=== PATIENT | male | born 1935 | race Caucasian/White ===

== ENCOUNTER 2016-06-07 21:47 | Inpatient (IN) | payer OTHER ==
[~2016-06-07] VITALS: Ht 172.7 cm; Wt 84.0 kg
[~2016-06-07 21:47] MED LIST: ADVAIR 250/501 DISK IH; AMITRIPTYLINE H25 MG PO; AMLODIPINE BESY10 MG PO; AMLODIPINE BESYL5 MG PO; AZITHROMYCIN500 M1 PO; Antivert PO; BENTYL20 MG PO; BUSPIRONE HCL15 MG PO; CARAFATE1 GM PO; CLONIDINE HCL0.1 MG PO; COLACE100 MG PO; COZAAR50 MG PO; DILAUDID2 MG PO; DURAGESIC25 MCG TD; Desyrel PO; Diflucan PO; Duragesic TD; ENDOCET 10-3251 EACH PO; ENDOCET 5-3251 EACH PO; Elavil PO; FENTANYL1 EAC5 TD; FENTANYL1 EACH TD; FLOMAX0.4 MG PO; FLUCONAZOL; GABAPENTIN300 MG PO; HALCION0.125 MG PO; HALCION0.25 MG PO; LISINOPRIL10 MG PO; LISINOPRIL20 MG PO; LORTAB 5-325 M1 EACH PO; LOSARTAN POTASS50 MG PO; MELATONIN10 M1 PO; METOPROLOL TART25 MG; METOPROLOL TART25 MG PO; METOPROLOL TART50 MG PO; MORPHINE SULFAT30 M5 PO; MUCINEX DM ER1 EACH PO; NITROSTAT,NITR0.4 M1 SL; NITROSTAT0.4 MG SL; NORVASC5 MG PO; Norvasc PO; PANTOPRAZOLE SO40 MG PO; PERCOCET 10/1 TABLET PO; PERCOCET 5/31 TABLET PO; PREDNISONE10 MG PO; PREDNISONE20 MG PO; PROAIR HFA8.5 GM IH; PROMETHAZINE HC25 M1 PO; PROTONIX40 MG PO; QUETIAPINE FUMA25 MG PO; QUETIAPINE FUMA50 MG PO; REQUIP0.5 MG PO; REQUIP1 MG PO; SERTRALINE HCL50 MG PO; SIMVASTATIN20 MG PO; Sertraline HCl PO; TRAZODONE HCL50 MG PO; ZANTAC150 MG PO; ZITHROMAX Z-PA250 MG PO; ZITHROMAX500 MG PO; ZOCOR20 MG PO; ZOFRAN ODT4 MG PO; ZOFRAN4 MG PO; ZOLOFT100 MG PO; ZOLOFT50 M1 PO; Zocor PO; Zofran PO; Zoloft PO
[2016-06-07 23:17] LABS: HEMATOCRIT 37.9 % (38.0-50.0); MCH 28.2 PG (29.0-34.0); MCHC 34.3 G/DL (30.0-36.0); MCV 82.2 FL (86-99); MEAN PLAT.VOLUME 10.3 uM^3 (9.0-12.4); PLATELET COUNT 284 K/uL (156-360); RBC DIS.WIDTH-CV 13.2 % (11.8-14.6); RBC DIS.WIDTH-SD 38.8 % (39-53); RED BLOOD COUNT 4.61 M/uL (4.00-5.50)
[2016-06-07 23:29] LABS: CHLORIDE 106 mEq/L (99-109); POTASSIUM 4.1 mEq/L (3.7-5.4); SODIUM 138 mEq/L (136-147)
[2016-06-07 23:30] LABS: GLUCOSE 116 mg/dL (70-99)
[2016-06-07 23:32] LABS: ANION GAP 10 MEQ/L (2-14)
[2016-06-07 23:34] LABS: GFR ESTIMATE (CALCULATED) 48 mL/min/
[2016-06-07 23:35] LABS: UREA NITROGEN (BUN) 18 mg/dL (9-23)
[2016-06-08 01:33] LABS: LIPASE 65 U/L (1.0-51.0)
[2016-06-08 04:10] VITALS: BP 178/72
[2016-06-08 06:46] LABS: ANION GAP 7 MEQ/L (2-14); CHLORIDE 106 MEQ/L (99-109); GFR ESTIMATE (CALCULATED) 52 mL/min/; GLUCOSE 97 mg/dL (70-99); SAMPLE HEMOLYSIS CHECK 0; SAMPLE ICTERIC CHECK 0; SAMPLE LIPEMIA CHECK 0; SODIUM 137 MEQ/L (136-147); UREA NITROGEN (BUN) 18 mg/dL (9-23)
[2016-06-08 06:49] LABS: HEMATOCRIT 30.9 % (38.0-50.0); MCH 27.6 PG (29.0-34.0); MCV 83.7 FL (86-99); RBC DIS.WIDTH-CV 13.4 % (11.8-14.6); RBC DIS.WIDTH-SD 40.9 % (39-53); RED BLOOD COUNT 3.69 M/uL (4.00-5.50)
[2016-06-08 06:51] LABS: WHITE BLOOD COUNT 8.1 K/uL (4.1-10.2)
[2016-06-08 07:45] LABS: MEAN PLAT.VOLUME 10.4 uM^3 (9.0-12.4)
[2016-06-08 07:46] LABS: PLATELET COUNT 188 K/uL (156-360)
[2016-06-08 12:00] VITALS: BP 154/68
[2016-06-08 14:00] VITALS: BP 177/74
[2016-06-09] VITALS (7 sets, daily range): BP systolic 112–165; BP diastolic 56–92
[2016-06-09 09:17] LABS: ADD MIUA? NO; BILIRUBIN NEGATIVE; BLOOD NEGATIVE; COLOR YELLOW ((YELLOW)); GLUCOSE (STRIP) NEGATIVE; KETONES TRACE; LEUKOCYTES NEGATIVE; NITRITE NEGATIVE; PROTEIN (STRIP) NEGATIVE; SPECIFIC GRAVITY 1.008 (1.000-1.030); UROBILINOGEN 0.2 MG/DL (0.2-1.0)
[2016-06-09 09:34] LABS: UCUL ADDED? NO
[2016-06-10 04:24] VITALS: BP 169/77
[2016-06-10 05:30] VITALS: BP 139/69
[2016-06-10 08:30] VITALS: BP 156/72
[2016-06-10 12:43] VITALS: BP 147/70
[2016-06-10] MEDS ORDERED: REGLAN5 MG PO (13:01)
[2016-06-10] MEDS ORDERED: DULCOLAX10 MG PR (13:30)
[2016-06-10 16:55] VITALS: BP 141/68
[2016-06-10 21:24] VITALS: BP 182/80
[2016-06-11 06:58] LABS: EOSINOPHIL (%) 5.6 % (0-5); EOSINOPHIL COUNT 0.4 K/uL (0-0.3); HEMATOCRIT 34.3 % (38.0-50.0); IMMATURE GRANULOCYTE (%) 0.3 % (0.0-0.7); LYMPHOCYTE COUNT 1.6 K/uL (1.0-2.8); MCH 27.8 PG (29.0-34.0); MCHC 33.2 G/DL (30.0-36.0); MCV 83.7 FL (86-99); MEAN PLAT.VOLUME 10.4 uM^3 (9.0-12.4); MONOCYTE (%) 9.6 % (3-12); MONOCYTE COUNT 0.7 K/uL (0-0.8); PLATELET COUNT 193 K/uL (156-360); RBC DIS.WIDTH-CV 13.6 % (11.8-14.6); RBC DIS.WIDTH-SD 41.3 % (39-53); WHITE BLOOD COUNT 6.7 K/uL (4.1-10.2)
[2016-06-11 08:00] VITALS: BP 172/81
[2016-06-11 08:21] LABS: ALKALINE PHOSPHATASE 48 IU/L (3-129); ANION GAP 7 MEQ/L (2-14); CHLORIDE 106 MEQ/L (99-109); GFR ESTIMATE (CALCULATED) 48 mL/min/; GLUCOSE 102 mg/dL (70-99); MAGNESIUM 2.2 mg/dl (1.3-2.7); POTASSIUM 3.8 MEQ/L (3.7-5.4); SAMPLE HEMOLYSIS CHECK 0; SAMPLE ICTERIC CHECK 0; SAMPLE LIPEMIA CHECK 0; SODIUM 139 MEQ/L (136-147); UREA NITROGEN (BUN) 13 mg/dL (9-23)
[2016-06-11 08:31] LABS: TOTAL BILIRUBIN 0.5 MG/DL (0.0-1.0)
[2016-06-11 12:47] VITALS: BP 168/75
[2016-06-11 20:42] VITALS: BP 182/75
[2016-06-12] VITALS: BP 150/67
[2016-06-12 04:22] VITALS: BP 133/63
[2016-06-12 08:33] VITALS: BP 146/71
[2016-06-12 11:45] VITALS: BP 139/65
[2016-06-12 16:26] VITALS: BP 157/69
[2016-06-12 20:20] VITALS: BP 168/80
[2016-06-13] VITALS (7 sets, daily range): BP systolic 132–187; BP diastolic 63–87
[2016-06-13 07:11] LABS: HEMATOCRIT 31.4 % (38.0-50.0); MCHC 33.8 G/DL (30.0-36.0); MCV 83.1 FL (86-99); MEAN PLAT.VOLUME 10.6 uM^3 (9.0-12.4); PLATELET COUNT 188 K/uL (156-360); RBC DIS.WIDTH-CV 13.6 % (11.8-14.6); RBC DIS.WIDTH-SD 41.1 % (39-53); RED BLOOD COUNT 3.78 M/uL (4.00-5.50); WHITE BLOOD COUNT 6.4 K/uL (4.1-10.2)
[2016-06-13 07:38] LABS: ANION GAP 7 MEQ/L (2-14); CHLORIDE 107 MEQ/L (99-109); GFR ESTIMATE (CALCULATED) 56 mL/min/; GLUCOSE 103 mg/dL (70-99); MAGNESIUM 2.1 mg/dl (1.3-2.7); POTASSIUM 3.9 MEQ/L (3.7-5.4); SAMPLE HEMOLYSIS CHECK 0; SAMPLE ICTERIC CHECK 0; SAMPLE LIPEMIA CHECK 0; SODIUM 140 MEQ/L (136-147); UREA NITROGEN (BUN) 12 mg/dL (9-23)
[2016-06-14 04:14] VITALS: BP 191/81
[2016-06-14 07:35] VITALS: BP 156/92
[2016-06-14 12:26] VITALS: BP 120/59
[2016-06-14] MEDS ORDERED: DECADRON1 MG PO (14:22)
[2016-06-14] MEDS ORDERED: ERYTHROMYCIN250 M1 PO (14:22)
== END 2016-06-14 16:02 | disposition home health service (06) | DRG 392 ==
LOC: EME 21:47 → EDOF 06-08 01:56 → 5WEST 06-08 01:56
PROVIDERS: Hospitalist; Internal Medicine
DX: K31.84 Gastroparesis (principal); R13.10 Dysphagia, unspecified; E86.0 Dehydration; E27.40 Unspecified adrenocortical insufficiency; N17.9 Acute kidney failure, unspecified; K21.9 Gastro-esophageal reflux disease without esophagitis; D72.829 Elevated white blood cell count, unspecified; M75.101 Unspecified rotator cuff tear or rupture of right shoulder, not specified as traumatic; R41.0 Disorientation, unspecified; G24.01 Drug induced subacute dyskinesia; T45.0X5A Adverse effect of antiallergic and antiemetic drugs, initial encounter; I13.10 Hypertensive heart and chronic kidney disease without heart failure, with stage 1 through stage 4 chronic kidney disease, or unspecified chronic kidney disease; N18.3 Chronic kidney disease, stage 3 (moderate); K25.9 Gastric ulcer, unspecified as acute or chronic, without hemorrhage or perforation; G30.9 Alzheimer's disease, unspecified; F02.80 Dementia in other diseases classified elsewhere, unspecified severity, without behavioral disturbance, psychotic disturbance, mood disturbance, and anxiety; J44.9 Chronic obstructive pulmonary disease, unspecified; I25.10 Atherosclerotic heart disease of native coronary artery without angina pectoris; I25.2 Old myocardial infarction; Z98.61 Coronary angioplasty status; E78.5 Hyperlipidemia, unspecified; R29.6 Repeated falls; G89.4 Chronic pain syndrome; Z88.0 Allergy status to penicillin; Z88.1 Allergy status to other antibiotic agents; Z88.5 Allergy status to narcotic agent; Z88.6 Allergy status to analgesic agent; Z88.8 Allergy status to other drugs, medicaments and biological substances; Z91.041 Radiographic dye allergy status
CPT/HCPCS: 71020; 73030; 74000; 80048; 80053; 80400; 81003; 82024 90; 82533 91; 83690; 83735; 85025; 85027; 86850; 86900; 86901; 93005; 93971; 94799; 97530 GP; 99281; 99285; C9113; G0378; G8978 GP CJ; G8979 GP CI; G8987 GO CJ; G8988 GO CH; J1200; J2270; J2405; J2765; J7040; J8540

== ENCOUNTER 2016-08-19 09:45 | Inpatient (IN) | payer OTHER ==
[~2016-08-19] VITALS: Ht 182.9 cm; Wt 84.9 kg
[~2016-08-19 09:45] MED LIST changes: +DECADRON1 MG PO; +DULCOLAX10 MG PR; +ERYTHROMYCIN250 M1 PO; +REGLAN5 MG PO
[2016-08-19 10:42] LABS: BASOPHIL COUNT 0.1 K/uL (0-0.1); EOSINOPHIL (%) 1.8 % (0-5); EOSINOPHIL COUNT 0.2 K/uL (0-0.3); HEMATOCRIT 34.9 % (38.0-50.0); IMMATURE GRANULOCYTE (%) 0.5 % (0.0-0.7); IMMATURE GRANULOCYTE COUNT 0.1 K/uL; INSTRUMENT ABS NEUTROPHIL CT 11.7 K/uL; LYMPHOCYTE COUNT 0.5 K/uL (1.0-2.8); MCH 28.2 PG (29.0-34.0); MCHC 32.4 G/DL (30.0-36.0); MONOCYTE (%) 5.7 % (3-12); MONOCYTE COUNT 0.8 K/uL (0-0.8); NEUTROPHIL (%) 87.8 % (45-76); NEUTROPHIL COUNT 11.7 K/uL (1.8-6.4); PLATELET COUNT 195 K/uL (156-360); RBC DIS.WIDTH-CV 14.1 % (11.8-14.6); RBC DIS.WIDTH-SD 45.3 % (39-53); RED BLOOD COUNT 4.01 M/uL (4.00-5.50); WHITE BLOOD COUNT 13.3 K/uL (4.1-10.2)
[2016-08-19 11:02] LABS: CHLORIDE 110 mEq/L (99-109); POTASSIUM 4.3 mEq/L (3.7-5.4); SODIUM 141 mEq/L (136-147)
[2016-08-19 11:04] LABS: GLUCOSE 173 mg/dL (70-99)
[2016-08-19 11:05] LABS: ANION GAP 8 MEQ/L (2-14)
[2016-08-19 11:06] LABS: TOTAL BILIRUBIN 0.6 mg/dL (0.0-1.0)
[2016-08-19 11:07] LABS: ADD MIUA? NO; BILIRUBIN NEGATIVE; BLOOD NEGATIVE; COLOR YELLOW ((YELLOW)); GLUCOSE (STRIP) NEGATIVE; KETONES NEGATIVE; LEUKOCYTES NEGATIVE; NITRITE NEGATIVE; PROTEIN (STRIP) NEGATIVE; SPECIFIC GRAVITY 1.017 (1.000-1.030); UCUL ADDED? NO; UROBILINOGEN 0.2 MG/DL (0.2-1.0)
[2016-08-19 11:08] LABS: ALKALINE PHOSPHATASE 101 IU/L (3-129); GFR ESTIMATE (CALCULATED) 48 mL/min/
[2016-08-19 11:09] LABS: UREA NITROGEN (BUN) 18 mg/dL (9-23)
[2016-08-19 12:45] LABS: LIPASE 23 U/L (1.0-51.0)
[2016-08-19 15:26] VITALS: BP 122/65
[2016-08-19] MEDS ORDERED: DULCOLAX10 MG PR (16:48)
[2016-08-19] MEDS ORDERED: ARICEPT10 MG PO (16:50)
[2016-08-19 16:52] LABS: POINT-OF-CARE METER ID UU14188625
[2016-08-19 19:45] VITALS: BP 171/71
[2016-08-19 23:29] VITALS: BP 168/88
[2016-08-20 01:00] LABS: INFLUENZA A VIRAL ANTIGEN NEGATIVE; INFLUENZA B VIRAL ANTIGEN NEGATIVE
[2016-08-20 04:45] VITALS: BP 169/77
[2016-08-20 07:24] LABS: HEMATOCRIT 27.5 % (38.0-50.0); MCH 27.8 PG (29.0-34.0); MEAN PLAT.VOLUME 10.2 uM^3 (9.0-12.4); PLATELET COUNT 151 K/uL (156-360); RBC DIS.WIDTH-CV 14.1 % (11.8-14.6); RBC DIS.WIDTH-SD 45.6 % (39-53); WHITE BLOOD COUNT 10.4 K/uL (4.1-10.2)
[2016-08-20 07:42] LABS: ANION GAP 7 MEQ/L (2-14); CHLORIDE 114 MEQ/L (99-109); GLUCOSE 187 mg/dL (70-99); POTASSIUM 4.2 MEQ/L (3.7-5.4); SAMPLE HEMOLYSIS CHECK 0; SAMPLE ICTERIC CHECK 0; SAMPLE LIPEMIA CHECK 0; SODIUM 141 MEQ/L (136-147); UREA NITROGEN (BUN) 17 mg/dL (9-23)
[2016-08-20 07:49] LABS: RED BLOOD COUNT 3.16 M/uL (4.00-5.50)
[2016-08-20 08:00] VITALS: BP 151/68
[2016-08-20 08:04] LABS: GFR ESTIMATE (CALCULATED) > 59 mL/min/
[2016-08-20 08:26] LABS: INTERNAL CONTROL VALID? YES
[2016-08-20 11:15] VITALS: BP 124/54
[2016-08-20 14:36] LABS: HEMATOCRIT 25.8 % (38.0-50.0); MCV 87.2 FL (86-99)
[2016-08-20 15:19] VITALS: BP 149/65
[2016-08-20 22:20] LABS: POINT-OF-CARE METER ID UU14174225
[2016-08-21 07:50] LABS: HEMATOCRIT 25.8 % (38.0-50.0); MCH 27.9 PG (29.0-34.0); MCHC 32.2 G/DL (30.0-36.0); MCV 86.9 FL (86-99); MEAN PLAT.VOLUME 10.3 uM^3 (9.0-12.4); PLATELET COUNT 139 K/uL (156-360); RBC DIS.WIDTH-CV 14.4 % (11.8-14.6); RBC DIS.WIDTH-SD 45.5 % (39-53); RED BLOOD COUNT 2.97 M/uL (4.00-5.50); WHITE BLOOD COUNT 8.5 K/uL (4.1-10.2)
[2016-08-21 08:00] VITALS: BP 143/68
[2016-08-21 12:00] VITALS: BP 138/70
[2016-08-21 15:18] VITALS: BP 136/72
[2016-08-21 20:27] VITALS: BP 126/64
[2016-08-21 21:48] LABS: POINT-OF-CARE METER ID UU14188625
[2016-08-22 00:13] VITALS: BP 165/71
[2016-08-22 06:02] LABS: POINT-OF-CARE METER ID UU14188625
[2016-08-22 07:48] VITALS: BP 151/66
[2016-08-22 07:53] LABS: POINT-OF-CARE METER ID UU14188625
[2016-08-22 09:37] LABS: Estimated Average Glucose 143 mg/dL (70-123); HEMOGLOBIN A1c (GLYCOHEMOGLOB) 6.6 % HGB (Below 5.7)
[2016-08-22 09:53] LABS: HEMATOCRIT 25.4 % (38.0-50.0); MCH 27.9 PG (29.0-34.0); MCHC 32.7 G/DL (30.0-36.0); MCV 85.5 FL (86-99); MEAN PLAT.VOLUME 10.4 uM^3 (9.0-12.4); PLATELET COUNT 179 K/uL (156-360); RBC DIS.WIDTH-SD 43.7 % (39-53); RED BLOOD COUNT 2.97 M/uL (4.00-5.50); WHITE BLOOD COUNT 8.4 K/uL (4.1-10.2)
[2016-08-22 10:01] LABS: ANION GAP 8 MEQ/L (2-14); CHLORIDE 108 MEQ/L (99-109); GFR ESTIMATE (CALCULATED) 56 mL/min/; GLUCOSE 206 mg/dL (70-99); SAMPLE HEMOLYSIS CHECK 0; SAMPLE ICTERIC CHECK 0; SAMPLE LIPEMIA CHECK 0; SODIUM 137 MEQ/L (136-147)
[2016-08-22 10:05] LABS: UREA NITROGEN (BUN) 28 mg/dL (9-23)
[2016-08-22 15:53] VITALS: BP 165/69
[2016-08-22 16:39] LABS: POINT-OF-CARE METER ID UU14188625
[2016-08-22 20:03] VITALS: BP 154/68
[2016-08-22 22:08] LABS: POINT-OF-CARE METER ID UU14188625
[2016-08-22 23:43] VITALS: BP 154/68
[2016-08-23 08:13] VITALS: BP 143/66
[2016-08-23 11:02] VITALS: BP 144/62
[2016-08-23] MEDS ORDERED: ZITHROMAX500 MG PO (11:13)
[2016-08-23] MEDS ORDERED: CEFDINIR300 MG PO (11:13)
[2016-08-23] MEDS ORDERED: PREDNISONE20 MG PO (11:50)
[2016-08-23] MEDS ORDERED: ZOFRAN ODT4 MG PO (18:24)
== END 2016-08-23 12:52 | disposition home or self-care (01) | DRG 871 ==
LOC: EME → EDBD 09:45 → EDOF 12:51 → 5SOUTH 12:51 → EDOF 13:13 → 5SOUTH 14:28
PROVIDERS: Emergency Medicine; Hospitalist; Internal Medicine; Internal Medicine Infectious Disease; Nurse Practitioner Adult Health
DX: A41.9 Sepsis, unspecified organism (principal); J18.9 Pneumonia, unspecified organism; N17.9 Acute kidney failure, unspecified; J44.1 Chronic obstructive pulmonary disease with (acute) exacerbation; E86.0 Dehydration; K31.84 Gastroparesis; N18.3 Chronic kidney disease, stage 3 (moderate); G30.9 Alzheimer's disease, unspecified; F03.90 Unspecified dementia, unspecified severity, without behavioral disturbance, psychotic disturbance, mood disturbance, and anxiety; I25.10 Atherosclerotic heart disease of native coronary artery without angina pectoris; Z91.81 History of falling; Z90.49 Acquired absence of other specified parts of digestive tract; I12.9 Hypertensive chronic kidney disease with stage 1 through stage 4 chronic kidney disease, or unspecified chronic kidney disease; Y95 Nosocomial condition
CPT/HCPCS: 70450; 71010; 80048; 80053; 81003; 82948; 83036; 83605; 83690; 85014; 85018; 85025; 85027; 86609 90; 87040; 87449; 87502; 92610 GN; 93005; 94640; 94640 76; 94799; 97530 GO; 99202; 99281; 99285; J0456; J0692; J0696; J1170; J1644; J1815; J2405; J2920; J3370; J7030; J7050; J7120

== ENCOUNTER 2016-08-23 15:56 | Emergency (ER) | payer OTHER ==
[~2016-08-23] VITALS: Ht 172.7 cm; Wt 93.7 kg
[~2016-08-23 15:56] MED LIST changes: +ARICEPT10 MG PO; +CEFDINIR300 MG PO
[2016-08-23 17:05] LABS: HEMATOCRIT 27.5 % (38.0-50.0); MCH 28.1 PG (29.0-34.0); MCHC 33.8 G/DL (30.0-36.0); MCV 83.1 FL (86-99); MEAN PLAT.VOLUME 10.3 uM^3 (9.0-12.4); PLATELET COUNT 196 K/uL (156-360); RBC DIS.WIDTH-CV 13.6 % (11.8-14.6); RBC DIS.WIDTH-SD 41.1 % (39-53); RED BLOOD COUNT 3.31 M/uL (4.00-5.50); WHITE BLOOD COUNT 8.5 K/uL (4.1-10.2)
[2016-08-23 17:14] LABS: CHLORIDE 105 mEq/L (99-109); POTASSIUM 3.9 mEq/L (3.7-5.4); SODIUM 136 mEq/L (136-147)
[2016-08-23 17:16] LABS: GLUCOSE 157 mg/dL (70-99)
[2016-08-23 17:17] LABS: ANION GAP 8 MEQ/L (2-14)
[2016-08-23 17:18] LABS: TOTAL BILIRUBIN 0.2 mg/dL (0.0-1.0)
[2016-08-23 17:20] LABS: GFR ESTIMATE (CALCULATED) 56 mL/min/
[2016-08-23 17:21] LABS: UREA NITROGEN (BUN) 25 mg/dL (9-23)
[2016-08-23 17:23] LABS: LIPASE 90 U/L (1.0-51.0)
[2016-08-23 17:24] LABS: ALKALINE PHOSPHATASE 51 IU/L (3-129)
[2016-08-23] MEDS ORDERED: ZOFRAN ODT4 MG PO (18:24)
[2016-08-23 19:18] VITALS: BP 164/73
== END 2016-08-23 19:19 | disposition home or self-care (01) ==
LOC: EME 15:56
PROVIDERS: Emergency Medicine
DX: R11.10 Vomiting, unspecified (principal); J45.909 Unspecified asthma, uncomplicated; J44.9 Chronic obstructive pulmonary disease, unspecified; E78.5 Hyperlipidemia, unspecified; I10 Essential (primary) hypertension; K21.9 Gastro-esophageal reflux disease without esophagitis; Z87.891 Personal history of nicotine dependence
CPT/HCPCS: 80053; 83690; 85027; 99281; 99284; J2405

== ENCOUNTER 2016-08-24 14:00 | Emergency (ER) | payer OTHER ==
[~2016-08-24] VITALS: Ht 172.7 cm; Wt 80.9 kg
[2016-08-24 15:04] LABS: HEMATOCRIT 31.4 % (38.0-50.0); MCH 27.7 PG (29.0-34.0); MCHC 33.1 G/DL (30.0-36.0); MCV 83.5 FL (86-99); NRBC (%) 0.2 /100 WBC (0-0); RBC DIS.WIDTH-CV 13.6 % (11.8-14.6); RBC DIS.WIDTH-SD 41.4 % (39-53); RED BLOOD COUNT 3.76 M/uL (4.00-5.50)
[2016-08-24 15:05] LABS: PLATELET COUNT 259 K/uL (156-360); WHITE BLOOD COUNT 13.8 K/uL (4.1-10.2)
[2016-08-24 15:06] LABS: ADD MIUA? NO; BILIRUBIN NEGATIVE; BLOOD NEGATIVE; COLOR STRAW ((YELLOW)); GLUCOSE (STRIP) NEGATIVE; KETONES NEGATIVE; LEUKOCYTES NEGATIVE; NITRITE NEGATIVE; PROTEIN (STRIP) NEGATIVE; SPECIFIC GRAVITY 1.013 (1.000-1.030); UCUL ADDED? NO; UROBILINOGEN 0.2 MG/DL (0.2-1.0)
[2016-08-24 15:07] LABS: INTER. NORMALIZED RATIO 1.1; PROTHROMBIN TIME 10.7 (9.2-11.2); PTT 21.5 (25-32)
[2016-08-24 15:09] LABS: CHLORIDE 104 mEq/L (99-109); POTASSIUM 3.5 mEq/L (3.7-5.4); SODIUM 138 mEq/L (136-147)
[2016-08-24 15:13] LABS: ANION GAP 7 MEQ/L (2-14)
[2016-08-24 15:15] LABS: ALKALINE PHOSPHATASE 50 IU/L (3-129); GFR ESTIMATE (CALCULATED) 56 mL/min/
[2016-08-24 15:16] LABS: UREA NITROGEN (BUN) 20 mg/dL (9-23)
[2016-08-24 15:18] LABS: TROP-I INTERPRETATION NEGATIVE; TROPONIN-I 0.02 ng/mL (0.0-0.30)
[2016-08-24 15:20] LABS: GLUCOSE 91 mg/dL (70-99); TOTAL BILIRUBIN 0.4 mg/dL (0.0-1.0)
[2016-08-24 18:33] VITALS: BP 179/89
== END 2016-08-24 18:34 | disposition home or self-care (01) ==
LOC: EME 14:00
PROVIDERS: Emergency Medicine
DX: R11.10 Vomiting, unspecified (principal); F03.90 Unspecified dementia, unspecified severity, without behavioral disturbance, psychotic disturbance, mood disturbance, and anxiety; E78.5 Hyperlipidemia, unspecified; I10 Essential (primary) hypertension; Z88.1 Allergy status to other antibiotic agents; Z88.6 Allergy status to analgesic agent; Z91.041 Radiographic dye allergy status; Z87.891 Personal history of nicotine dependence
CPT/HCPCS: 71275; 80053; 81003; 84484; 85027; 85610; 85730; 93005; 99281; 99285; J2405; J7040

== ENCOUNTER 2016-09-25 13:04 | Emergency (ER) | payer OTHER ==
[~2016-09-25] VITALS: Ht 172.7 cm; Wt 85.0 kg
[2016-09-25 14:25] LABS: HEMATOCRIT 35.8 % (38.0-50.0); MCH 28.5 PG (29.0-34.0); MCHC 32.7 G/DL (30.0-36.0); MCV 87.3 FL (86-99); PLATELET COUNT 208 K/uL (156-360); RBC DIS.WIDTH-CV 14.6 % (11.8-14.6); RBC DIS.WIDTH-SD 46.6 % (39-53); WHITE BLOOD COUNT 7.5 K/uL (4.1-10.2)
[2016-09-25 14:34] LABS: CHLORIDE 105 mEq/L (99-109); POTASSIUM 4.5 mEq/L (3.7-5.4); SODIUM 137 mEq/L (136-147)
[2016-09-25 14:36] LABS: GLUCOSE 128 mg/dL (70-99)
[2016-09-25 14:37] LABS: ANION GAP 9 MEQ/L (2-14)
[2016-09-25 14:38] LABS: TOTAL BILIRUBIN 0.4 mg/dL (0.0-1.0)
[2016-09-25 14:39] LABS: ALKALINE PHOSPHATASE 62 IU/L (3-129)
[2016-09-25 14:40] LABS: GFR ESTIMATE (CALCULATED) > 59 mL/min/
[2016-09-25 14:41] LABS: UREA NITROGEN (BUN) 7 mg/dL (9-23)
[2016-09-25 14:43] LABS: LIPASE 30 U/L (1.0-51.0)
[2016-09-25 15:01] LABS: ADD MIUA? NO; BILIRUBIN NEGATIVE; BLOOD NEGATIVE; COLOR YELLOW ((YELLOW)); GLUCOSE (STRIP) NEGATIVE; KETONES NEGATIVE; LEUKOCYTES NEGATIVE; NITRITE NEGATIVE; PROTEIN (STRIP) 30; SPECIFIC GRAVITY 1.016 (1.000-1.030); UCUL ADDED? NO; UROBILINOGEN 0.2 MG/DL (0.2-1.0)
[2016-09-25 16:53] VITALS: BP 140/60
== END 2016-09-25 16:54 | disposition home or self-care (01) ==
LOC: EME 13:04
DX: R11.10 Vomiting, unspecified (principal); R10.9 Unspecified abdominal pain; J45.909 Unspecified asthma, uncomplicated; J44.9 Chronic obstructive pulmonary disease, unspecified; E78.5 Hyperlipidemia, unspecified; I10 Essential (primary) hypertension; K21.9 Gastro-esophageal reflux disease without esophagitis; G30.9 Alzheimer's disease, unspecified; Z87.891 Personal history of nicotine dependence
CPT/HCPCS: 80053; 81003; 83690; 85027; 99281; 99285; J2405; J7030

== ENCOUNTER 2016-10-18 13:51 | Emergency (ER) | payer OTHER ==
[~2016-10-18] VITALS: Ht 172.7 cm; Wt 85.3 kg
[2016-10-18 15:42] LABS: HEMATOCRIT 38.9 % (38.0-50.0); MCH 28.1 PG (29.0-34.0); MCHC 31.9 G/DL (30.0-36.0); MEAN PLAT.VOLUME 11.6 uM^3 (9.0-12.4); PLATELET COUNT 199 K/uL (156-360); RBC DIS.WIDTH-CV 13.2 % (11.8-14.6); RBC DIS.WIDTH-SD 42.8 % (39-53); RED BLOOD COUNT 4.42 M/uL (4.00-5.50); WHITE BLOOD COUNT 6.7 K/uL (4.1-10.2)
[2016-10-18 15:51] LABS: CHLORIDE 106 mEq/L (99-109); POTASSIUM 4.1 mEq/L (3.7-5.4); SODIUM 140 mEq/L (136-147)
[2016-10-18 15:52] LABS: GLUCOSE 152 mg/dL (70-99)
[2016-10-18 15:54] LABS: ANION GAP 10 MEQ/L (2-14)
[2016-10-18 15:56] LABS: GFR ESTIMATE (CALCULATED) 56 mL/min/
[2016-10-18 15:57] LABS: UREA NITROGEN (BUN) 9 mg/dL (9-23)
[2016-10-18 17:10] VITALS: BP 160/68
== END 2016-10-18 17:12 | disposition home or self-care (01) ==
LOC: EME 13:51
DX: R06.09 Other forms of dyspnea (principal); J44.9 Chronic obstructive pulmonary disease, unspecified; J45.909 Unspecified asthma, uncomplicated; I10 Essential (primary) hypertension; R11.0 Nausea; Z87.891 Personal history of nicotine dependence
CPT/HCPCS: 71020; 80048; 85027; 93005; 99281; 99284

== ENCOUNTER 2017-07-06 10:36 | Emergency (ER) | payer OTHER ==
[~2017-07-06] VITALS: Ht 172.7 cm; Wt 88.9 kg
[~2017-07-06 10:36] MED LIST changes: -ARICEPT10 MG PO; +ARICEPT5 MG PO; +BACTROBAN OINTM22 GM TP; +HYDROCHLOROTHIA25 MG PO; +LYRICA50 MG PO; -QUETIAPINE FUMA25 MG PO
[2017-07-06 11:36] LABS: HEMATOCRIT 42.5 % (38.0-50.0); HEMOGLOBIN 14.2 G/DL (12.5-16.6); MCH 27.8 PG (29.0-34.0); MCHC 33.4 G/DL (30.0-36.0); MCV 83.2 FL (86-99); PLATELET COUNT 290 K/uL (156-360); RBC DIS.WIDTH-CV 14.4 % (11.8-14.6); RBC DIS.WIDTH-SD 43.6 % (39-53); RED BLOOD COUNT 5.11 M/uL (4.00-5.50); WHITE BLOOD COUNT 19.4 K/uL (4.1-10.2)
[2017-07-06 11:46] LABS: CHLORIDE 104 mEq/L (99-109); POTASSIUM 3.8 mEq/L (3.7-5.4); SODIUM 134 mEq/L (136-147)
[2017-07-06 11:48] LABS: GLUCOSE 174 mg/dL (70-99)
[2017-07-06 11:52] LABS: GFR ESTIMATE (CALCULATED) 34 mL/min/ (58.99-99999)
[2017-07-06 11:53] LABS: UREA NITROGEN (BUN) 33 mg/dL (9-23)
[2017-07-06] MEDS ORDERED: VENTOLIN HFA18 GM IH (13:54)
[2017-07-06 14:03] VITALS: BP 140/90
== END 2017-07-06 14:03 | disposition home or self-care (01) ==
LOC: EME 10:36
DX: J44.1 Chronic obstructive pulmonary disease with (acute) exacerbation (principal); E78.5 Hyperlipidemia, unspecified; I10 Essential (primary) hypertension; K21.9 Gastro-esophageal reflux disease without esophagitis; Z86.73 Personal history of transient ischemic attack (TIA), and cerebral infarction without residual deficits; Z87.891 Personal history of nicotine dependence; F32.9 Major depressive disorder, single episode, unspecified; F41.9 Anxiety disorder, unspecified; Z88.5 Allergy status to narcotic agent; Z88.0 Allergy status to penicillin
CPT/HCPCS: 71046; 80048; 85027; 93005; 99281; 99284

== ENCOUNTER 2017-10-02 14:43 | Observation (INO) | payer OTHER ==
[~2017-10-02] VITALS: Ht 172.7 cm; Wt 89.6 kg
[~2017-10-02 14:43] MED LIST changes: -LYRICA50 MG PO; +LYRICA75 MG PO; +VENTOLIN HFA18 GM IH
[2017-10-02 17:49] LABS: PLATELET COUNT 184 K/uL (156-360)
[2017-10-02 17:59] LABS: ALBUMIN 4.2 g/dL (3.2-4.8)
[2017-10-02 18:00] LABS: CHLORIDE 107 mEq/L (99-109); POTASSIUM 4.5 mEq/L (3.7-5.4); SODIUM 135 mEq/L (136-147)
[2017-10-02 18:02] LABS: TOTAL PROTEIN 7.3 g/dL (6.4-8.3)
[2017-10-02 18:04] LABS: TOTAL BILIRUBIN 0.4 mg/dL (0.0-1.0)
[2017-10-02 18:06] LABS: ALKALINE PHOSPHATASE 78 IU/L (3-129); GFR ESTIMATE (CALCULATED) 34 mL/min/ (58.99-99999)
[2017-10-02 18:07] LABS: AST (GOT) 22 IU/L (2-34); UREA NITROGEN (BUN) 20 mg/dL (9-23)
[2017-10-02 18:09] LABS: ALT (GPT) 9 IU/L (3-49); GLUCOSE 98 mg/dL (70-99)
[2017-10-02 18:13] LABS: HEMATOCRIT 38.8 % (38.0-50.0); HEMOGLOBIN 12.6 G/DL (12.5-16.6); MCH 29.6 PG (29.0-34.0); MCHC 32.5 G/DL (30.0-36.0); MCV 91.3 FL (86-99); NRBC (%) 0.1 /100 WBC (0-0); RBC DIS.WIDTH-CV 17.6 % (11.8-14.6); RBC DIS.WIDTH-SD 58.9 % (39-53); RED BLOOD COUNT 4.25 M/uL (4.00-5.50)
[2017-10-02 18:14] LABS: WHITE BLOOD COUNT 44.8 K/uL (4.1-10.2)
[2017-10-02 19:25] LABS: ABS NEUTROPHIL COUNT 25.4; ANISOCYTOSIS 1+; ATYPICAL LYMPHOCYTE 0.4 %; BAND NEUTROPHILS 16.7 % (0-8.0); EOSINOPHIL ABS CT 1.6; EOSINOPHILS 3.5 % (0-5.0); LYMPHOCYTES 7.9 % (15.0-45.0); METAMYELOCYTES 6.2 %; MICROCYTOSIS 1+; MONOCYTES 17.1 % (0-9.0); MYELOCYTES 8.3 %; PLAT.SUFFICIENCY ADEQUATE; SEG.NEUTROPHILS 39.9 % (46.0-76.0)
[2017-10-02 20:03] LABS: APPEARANCE CLEAR ((CLEAR)); BILIRUBIN NEGATIVE; BLOOD NEGATIVE; COLOR YELLOW ((YELLOW)); GLUCOSE (STRIP) NEGATIVE; KETONES NEGATIVE; LEUKOCYTES LARGE; NITRITE NEGATIVE; PROTEIN (STRIP) 30; SPECIFIC GRAVITY 1.021 (1.000-1.030); UROBILINOGEN 0.2 MG/DL (0.2-1.0)
[2017-10-02 20:25] LABS: BACTERIA RARE /HPF; EPITHELIAL CELLS RARE /HPF; HYALINE CASTS 15-20 /LPF; MUCUS TRACE /LPF; RED BLOOD CELLS 0-5 /HPF (0-5); UCUL ADDED? YES; WHITE BLOOD CELLS 20-30 /HPF (0-5)
[2017-10-02] MEDS ORDERED: BACTRIM,SEPT1 TABLET PO (22:20)
[2017-10-02 23:26] LABS: TROP-I INTERPRETATION NEGATIVE; TROPONIN-I < 0.01 ng/mL (0.0-0.30)
[2017-10-03 03:59] LABS: TROP-I INTERPRETATION NEGATIVE; TROPONIN-I 0.02 ng/mL (0.0-0.30)
[2017-10-03 04:41] VITALS: BP 137/72
[2017-10-03 07:06] VITALS: BP 154/72
[2017-10-03 09:24] LABS: HEMATOCRIT 35.2 % (38.0-50.0); HEMOGLOBIN 11.3 G/DL (12.5-16.6); MCH 28.8 PG (29.0-34.0); MCHC 32.1 G/DL (30.0-36.0); MCV 89.6 FL (86-99); PLATELET COUNT 145 K/uL (156-360); RBC DIS.WIDTH-CV 17.4 % (11.8-14.6); RBC DIS.WIDTH-SD 57.2 % (39-53); RED BLOOD COUNT 3.93 M/uL (4.00-5.50); WHITE BLOOD COUNT 33.1 K/uL (4.1-10.2)
[2017-10-03 09:49] LABS: CHLORIDE 107 MEQ/L (99-109); CREATININE 1.8 MG/DL (0.6-1.3); GFR ESTIMATE (CALCULATED) 38 mL/min/ (58.99-99999); GLUCOSE 123 mg/dL (70-99); POTASSIUM 3.7 MEQ/L (3.7-5.4); SODIUM 139 MEQ/L (136-147); UREA NITROGEN (BUN) 21 mg/dL (9-23)
[2017-10-03 09:52] LABS: TROP-I INTERPRETATION NEGATIVE; TROPONIN-I 0.02 ng/mL (0.0-0.30)
[2017-10-03 11:32] VITALS: BP 178/81
[2017-10-03] MEDS ORDERED: CEFDINIR300 MG PO (13:24)
== END 2017-10-03 14:14 | disposition home or self-care (01) ==
LOC: EME 14:43 → EDOF 10-03 01:25 → ENRESERV 10-03 01:25 → 4SOUTH 10-03 04:16
PROVIDERS: Hospitalist; Nurse Practitioner Adult Health; Physician Assistant Medical
DX: D72.829 Elevated white blood cell count, unspecified (principal); N30.90 Cystitis, unspecified without hematuria; R41.0 Disorientation, unspecified; G30.9 Alzheimer's disease, unspecified; F02.80 Dementia in other diseases classified elsewhere, unspecified severity, without behavioral disturbance, psychotic disturbance, mood disturbance, and anxiety; I25.10 Atherosclerotic heart disease of native coronary artery without angina pectoris; K21.9 Gastro-esophageal reflux disease without esophagitis; I12.9 Hypertensive chronic kidney disease with stage 1 through stage 4 chronic kidney disease, or unspecified chronic kidney disease; N18.9 Chronic kidney disease, unspecified; J44.9 Chronic obstructive pulmonary disease, unspecified; K31.84 Gastroparesis; Z82.49 Family history of ischemic heart disease and other diseases of the circulatory system; Z98.1 Arthrodesis status; E78.5 Hyperlipidemia, unspecified; F41.9 Anxiety disorder, unspecified; Z90.49 Acquired absence of other specified parts of digestive tract; Z88.0 Allergy status to penicillin; Z88.1 Allergy status to other antibiotic agents; Z88.5 Allergy status to narcotic agent; Z88.6 Allergy status to analgesic agent; Z88.8 Allergy status to other drugs, medicaments and biological substances; Z91.041 Radiographic dye allergy status
CPT/HCPCS: 71046; 74176; 78582; 80048; 80053; 81003; 81206 90; 81270 90; 82948; 83605; 84484; 85025 91; 85027; 85379; 86021 90; 87040; 87086; 93005; 94640; 99202; 99281; 99285; A9540; A9567; G0378; J0696; J1644

== ENCOUNTER 2017-11-21 18:39 | Observation (INO) | payer OTHER ==
[~2017-11-21] VITALS: Ht 172.7 cm; Wt 89.3 kg
[~2017-11-21 18:39] MED LIST changes: +BACTRIM,SEPT1 TABLET PO
[2017-11-21 19:58] LABS: BICARBONATE 23.1 mEq/L (22-26); CARBOXY HGB 2.9 % (0-5); METHEMOGLOBIN 1.8 % (0-1.5); PCO2 39 mm Hg (35-45); PO2 66 mm Hg (80-100); pH 7.38 (7.35-7.45)
[2017-11-21 19:59] LABS: BASE EXCESS -1.8 mEq/L (-3 to +3); COMMENTS - BLOOD GASES C+A+; DEVICE ROOM AIR; SITE RR; TOTAL RESP RATE 16 resp/min
[2017-11-21 20:34] LABS: PLATELET COUNT 116 K/uL (156-360)
[2017-11-21 20:38] LABS: HEMOGLOBIN 11.5 G/DL (12.5-16.6); MCH 31.5 PG (29.0-34.0); MCHC 31.9 G/DL (30.0-36.0); MCV 98.6 FL (86-99); NRBC (%) 0.1 /100 WBC (0-0); RBC DIS.WIDTH-CV 17.1 % (11.8-14.6); RBC DIS.WIDTH-SD 61.8 % (39-53); RED BLOOD COUNT 3.65 M/uL (4.00-5.50)
[2017-11-21 20:40] LABS: WHITE BLOOD COUNT 64.3 K/uL (4.1-10.2)
[2017-11-21 20:46] LABS: ALBUMIN 3.8 g/dL (3.2-4.8)
[2017-11-21 20:47] LABS: CHLORIDE 106 mEq/L (99-109); MAGNESIUM 2.3 mg/dL (1.3-2.7); POTASSIUM 4.5 mEq/L (3.7-5.4); SODIUM 141 mEq/L (136-147)
[2017-11-21 20:49] LABS: GLUCOSE 115 mg/dL (70-99); TOTAL PROTEIN 6.3 g/dL (6.4-8.3)
[2017-11-21 20:51] LABS: TOTAL BILIRUBIN 0.6 mg/dL (0.0-1.0)
[2017-11-21 20:52] LABS: ALKALINE PHOSPHATASE 61 IU/L (3-129)
[2017-11-21 20:53] LABS: CREATININE 2.1 mg/dL (0.6-1.3); GFR ESTIMATE (CALCULATED) 32 mL/min/ (58.99-99999)
[2017-11-21 20:54] LABS: AST (GOT) 35 IU/L (2-34); UREA NITROGEN (BUN) 28 mg/dL (9-23)
[2017-11-21 20:56] LABS: ALT (GPT) 24 IU/L (3-49)
[2017-11-21 20:58] LABS: TROP-I INTERPRETATION NEGATIVE; TROPONIN-I 0.02 ng/mL (0.0-0.30)
[2017-11-21 21:58] LABS: APPEARANCE CLEAR ((CLEAR)); BILIRUBIN NEGATIVE; BLOOD NEGATIVE; COLOR YELLOW ((YELLOW)); GLUCOSE (STRIP) NEGATIVE; KETONES NEGATIVE; LEUKOCYTES SMALL; NITRITE NEGATIVE; PROTEIN (STRIP) NEGATIVE; SPECIFIC GRAVITY 1.016 (1.000-1.030); UROBILINOGEN 0.2 MG/DL (0.2-1.0)
[2017-11-21 22:22] LABS: BACTERIA NONE SEEN /HPF; EPITHELIAL CELLS RARE /HPF; HYALINE CASTS 0-5 /LPF; MUCUS TRACE /LPF; RED BLOOD CELLS 0-5 /HPF (0-5); WHITE BLOOD CELLS 15-20 /HPF (0-5)
[2017-11-21 22:31] LABS: AMPHETAMINE NEGATIVE (500 ng/mL); BARBITURATES NEGATIVE (200 ng/mL); BENZODIAZEPINES NEGATIVE (150 ng/mL); BUPRENORPHINE NEGATIVE (10 ng/mL); COCAINE NEGATIVE (150 ng/mL); METHADONE NEGATIVE (200 ng/mL); METHAMPHETAMINE NEGATIVE (500 ng/mL); OPIATES (MORPHINE) PRESUMPTIVE POSITIVE (100 ng/mL); OXYCODONE PRESUMPTIVE POSITIVE (100 ng/mL); PHENCYCLIDINE NEGATIVE (25 ng/mL); PROPOXYPHENE NEGATIVE (300 ng/mL); THC CANNABINOIDS NEGATIVE (50 ng/mL); TRICYCLIC ANTIDEPRESSANTS PRESUMPTIVE POSITIVE (300 ng/mL)
[2017-11-21] MEDS ORDERED: MS CONTIN,ORAMO15 M1 PO (23:02)
[2017-11-21] MEDS ORDERED: GLEEVEC400 MG PO (23:02)
[2017-11-21] MEDS ORDERED: ERGOCALCIF50000 UNIT PO (23:02)
[2017-11-21] MEDS ORDERED: SEROQUEL50 MG PO (23:03)
[2017-11-21] MEDS ORDERED: LOPID600 MG PO (23:04)
[2017-11-22 03:12] LABS: TROP-I INTERPRETATION NEGATIVE; TROPONIN-I 0.02 ng/mL (0.0-0.30)
[2017-11-22 04:11] VITALS: BP 183/75
[2017-11-22 05:34] LABS: PLATELET COUNT 129 K/uL (156-360)
[2017-11-22 05:35] LABS: HEMATOCRIT 32.8 % (38.0-50.0); HEMOGLOBIN 10.3 G/DL (12.5-16.6); MCH 30.1 PG (29.0-34.0); MCHC 31.4 G/DL (30.0-36.0); MCV 95.9 FL (86-99); NRBC (%) 0.1 /100 WBC (0-0); RBC DIS.WIDTH-SD 59.8 % (39-53); RED BLOOD COUNT 3.42 M/uL (4.00-5.50)
[2017-11-22 05:36] LABS: WHITE BLOOD COUNT 64.6 K/uL (4.1-10.2)
[2017-11-22 06:00] LABS: ALBUMIN 3.4 G/DL (3.2-4.8); ALKALINE PHOSPHATASE 44 IU/L (3-129); ALT (GPT) 20 IU/L (3-49); AST (GOT) 44 IU/L (2-34); CHLORIDE 106 MEQ/L (99-109); CREATININE 1.9 MG/DL (0.6-1.3); GFR ESTIMATE (CALCULATED) 36 mL/min/ (58.99-99999); GLUCOSE 119 mg/dL (70-99); SODIUM 138 MEQ/L (136-147); TOTAL BILIRUBIN 0.5 MG/DL (0.0-1.0); TOTAL PROTEIN 5.8 G/DL (6.4-8.3); UREA NITROGEN (BUN) 26 mg/dL (9-23)
[2017-11-22] MEDS ORDERED: CEFDINIR300 MG PO (10:24)
== END 2017-11-22 11:10 | disposition home or self-care (01) ==
LOC: EME 18:39 → EDOF 11-22 00:13 → 4SOUTH 11-22 00:13 → EDOF 11-22 00:13 → ENRESERV 11-22 00:16 → 4SOUTH 11-22 01:12
PROVIDERS: Emergency Medicine; Physician Assistant
DX: G92 Toxic encephalopathy (principal); T42.8X5A Adverse effect of antiparkinsonism drugs and other central muscle-tone depressants, initial encounter; N39.0 Urinary tract infection, site not specified; G30.9 Alzheimer's disease, unspecified; F02.80 Dementia in other diseases classified elsewhere, unspecified severity, without behavioral disturbance, psychotic disturbance, mood disturbance, and anxiety; C92.10 Chronic myeloid leukemia, BCR/ABL-positive, not having achieved remission; J44.9 Chronic obstructive pulmonary disease, unspecified; I25.10 Atherosclerotic heart disease of native coronary artery without angina pectoris; I12.9 Hypertensive chronic kidney disease with stage 1 through stage 4 chronic kidney disease, or unspecified chronic kidney disease; N18.9 Chronic kidney disease, unspecified; E78.5 Hyperlipidemia, unspecified; K21.9 Gastro-esophageal reflux disease without esophagitis; G89.4 Chronic pain syndrome; Z90.49 Acquired absence of other specified parts of digestive tract; Z98.1 Arthrodesis status; Z82.49 Family history of ischemic heart disease and other diseases of the circulatory system; Z83.3 Family history of diabetes mellitus; Z87.891 Personal history of nicotine dependence; Z88.0 Allergy status to penicillin; Z88.5 Allergy status to narcotic agent; Z88.6 Allergy status to analgesic agent; Z88.8 Allergy status to other drugs, medicaments and biological substances; Z91.041 Radiographic dye allergy status
CPT/HCPCS: 36600; 71045; 80053; 81003; 82140; 82803; 83735; 84484; 84999; 85027; 87086; 93005; 99281; 99285; G0378; J0696; J2405; J3010; J7030

== ENCOUNTER 2018-01-07 11:50 | Inpatient (IN) | payer OTHER ==
[~2018-01-07] VITALS: Ht 172.7 cm; Wt 90.0 kg
[~2018-01-07 11:50] MED LIST changes: +ERGOCALCIF50000 UNIT PO; +GLEEVEC400 MG PO; +LOPID600 MG PO; +MS CONTIN,ORAMO15 M1 PO; +SEROQUEL50 MG PO
[2018-01-07 13:05] LABS: APPEARANCE CLEAR ((CLEAR)); BILIRUBIN NEGATIVE; BLOOD NEGATIVE; COLOR YELLOW ((YELLOW)); GLUCOSE (STRIP) NEGATIVE; KETONES NEGATIVE; LEUKOCYTES TRACE; NITRITE NEGATIVE; PROTEIN (STRIP) NEGATIVE; SPECIFIC GRAVITY 1.013 (1.000-1.030); UROBILINOGEN 0.2 MG/DL (0.2-1.0)
[2018-01-07 13:16] LABS: BASOPHIL (%) 0.2 % (0-1); EOSINOPHIL (%) 0.3 % (0-5); HEMATOCRIT 25.8 % (38.0-50.0); IMMATURE GRANULOCYTE (%) 0.8 % (0.0-0.7); LYMPHOCYTE (%) 7.2 % (15-42); LYMPHOCYTE COUNT 0.5 K/uL (1.0-2.8); MCH 33.1 PG (29.0-34.0); MCHC 34.9 G/DL (30.0-36.0); MCV 94.9 FL (86-99); MONOCYTE (%) 5.7 % (3-12); MONOCYTE COUNT 0.4 K/uL (0-0.8); NEUTROPHIL (%) 85.8 % (45-76); NEUTROPHIL COUNT 5.6 K/uL (1.8-6.4); PLATELET COUNT 89 K/uL (156-360); RBC DIS.WIDTH-SD 52.4 % (39-53); RED BLOOD COUNT 2.72 M/uL (4.00-5.50); WHITE BLOOD COUNT 6.5 K/uL (4.1-10.2)
[2018-01-07 13:27] LABS: ALBUMIN 3.5 g/dL (3.2-4.8)
[2018-01-07 13:28] LABS: CHLORIDE 98 mEq/L (99-109); POTASSIUM 5.8 mEq/L (3.7-5.4); SODIUM 125 mEq/L (136-147)
[2018-01-07 13:30] LABS: GLUCOSE 132 mg/dL (70-99); TOTAL PROTEIN 5.9 g/dL (6.4-8.3)
[2018-01-07 13:30] LABS: BACTERIA NONE SEEN /HPF; EPITHELIAL CELLS NONE SEEN /HPF; HYALINE CASTS 0-5 /LPF; MUCUS NONE SEEN /LPF; RED BLOOD CELLS NONE SEEN /HPF (0-5); UCUL ADDED? NO; WHITE BLOOD CELLS 0-5 /HPF (0-5)
[2018-01-07 13:32] LABS: TOTAL BILIRUBIN 0.7 mg/dL (0.0-1.0)
[2018-01-07 13:33] LABS: ALKALINE PHOSPHATASE 79 IU/L (3-129)
[2018-01-07 13:34] LABS: CREATININE 2.4 mg/dL (0.6-1.3); GFR ESTIMATE (CALCULATED) 28 mL/min/ (58.99-99999)
[2018-01-07 13:35] LABS: AST (GOT) 21 IU/L (2-34); UREA NITROGEN (BUN) 24 mg/dL (9-23)
[2018-01-07 13:36] LABS: ALT (GPT) 6 IU/L (3-49)
[2018-01-07 13:38] LABS: TROP-I INTERPRETATION NEGATIVE; TROPONIN-I 0.03 ng/mL (0.0-0.30)
[2018-01-07 17:47] VITALS: BP 136/82
[2018-01-07 17:49] LABS: THYROTROPIN (TSH) 0.48 MIU/L (0.4-5.5)
[2018-01-07 18:28] LABS: UR CREATININE CONCENTRATION 90.3 MG/DL
[2018-01-07 20:36] VITALS: BP 156/84
[2018-01-07 21:56] LABS: CHLORIDE 104 MEQ/L (99-109); GLUCOSE 126 mg/dL (70-99); SODIUM 131 MEQ/L (136-147); UREA NITROGEN (BUN) 20 mg/dL (9-23)
[2018-01-07 22:01] LABS: CREATININE 1.9 MG/DL (0.6-1.3); GFR ESTIMATE (CALCULATED) 36 mL/min/ (58.99-99999); POTASSIUM 4.5 MEQ/L (3.7-5.4)
[2018-01-08] VITALS (7 sets, daily range): BP systolic 118–152; BP diastolic 58–89
[2018-01-08 06:28] LABS: HEMATOCRIT 25.5 % (38.0-50.0); HEMOGLOBIN 8.4 G/DL (12.5-16.6); MCH 33.1 PG (29.0-34.0); MCHC 32.9 G/DL (30.0-36.0); RBC DIS.WIDTH-CV 15.1 % (11.8-14.6); RBC DIS.WIDTH-SD 55.5 % (39-53); RED BLOOD COUNT 2.54 M/uL (4.00-5.50); WHITE BLOOD COUNT 3.5 K/uL (4.1-10.2)
[2018-01-08 06:44] LABS: MCV 100.4 FL (86-99)
[2018-01-08 06:47] LABS: CHLORIDE 107 MEQ/L (99-109); CREATININE 1.7 MG/DL (0.6-1.3); GFR ESTIMATE (CALCULATED) 41 mL/min/ (58.99-99999); GLUCOSE 107 mg/dL (70-99); POTASSIUM 4.3 MEQ/L (3.7-5.4); SODIUM 135 MEQ/L (136-147); UREA NITROGEN (BUN) 18 mg/dL (9-23)
[2018-01-08 07:26] LABS: PLATELET COUNT 57 K/uL (156-360)
[2018-01-08 14:23] LABS: CHLORIDE 108 MEQ/L (99-109); CREATININE 1.6 MG/DL (0.6-1.3); GFR ESTIMATE (CALCULATED) 44 mL/min/ (58.99-99999); GLUCOSE 168 mg/dL (70-99); SODIUM 133 MEQ/L (136-147); UREA NITROGEN (BUN) 18 mg/dL (9-23)
[2018-01-08 22:18] LABS: CHLORIDE 106 MEQ/L (99-109); CREATININE 1.5 MG/DL (0.6-1.3); GFR ESTIMATE (CALCULATED) 48 mL/min/ (58.99-99999); GLUCOSE 127 mg/dL (70-99); POTASSIUM 3.7 MEQ/L (3.7-5.4); SODIUM 135 MEQ/L (136-147); UREA NITROGEN (BUN) 16 mg/dL (9-23)
[2018-01-09] VITALS (11 sets, daily range): BP systolic 146–181; BP diastolic 51–80
[2018-01-09 05:45] LABS: HEMATOCRIT 23.1 % (38.0-50.0); HEMOGLOBIN 7.4 G/DL (12.5-16.6); PLATELET COUNT 54 K/uL (156-360); RBC DIS.WIDTH-CV 15.4 % (11.8-14.6); RED BLOOD COUNT 2.31 M/uL (4.00-5.50); WHITE BLOOD COUNT 2.3 K/uL (4.1-10.2)
[2018-01-09 06:11] LABS: CHLORIDE 109 MEQ/L (99-109); CREATININE 1.6 MG/DL (0.6-1.3); GFR ESTIMATE (CALCULATED) 44 mL/min/ (58.99-99999); GLUCOSE 111 mg/dL (70-99); POTASSIUM 3.8 MEQ/L (3.7-5.4); SODIUM 135 MEQ/L (136-147); UREA NITROGEN (BUN) 15 mg/dL (9-23)
[2018-01-09 13:52] LABS: CHLORIDE 111 MEQ/L (99-109); CREATININE 1.6 MG/DL (0.6-1.3); GFR ESTIMATE (CALCULATED) 44 mL/min/ (58.99-99999); GLUCOSE 134 mg/dL (70-99); POTASSIUM 4.2 MEQ/L (3.7-5.4); SODIUM 138 MEQ/L (136-147); UREA NITROGEN (BUN) 13 mg/dL (9-23)
[2018-01-09 14:30] LABS: HEMATOCRIT 21.3 % (38.0-50.0); MCV 99.5 FL (86-99)
[2018-01-09 21:15] LABS: POTASSIUM 4.6 mEq/L (3.7-5.4); SODIUM 138 mEq/L (136-147)
[2018-01-09 21:17] LABS: GLUCOSE 114 mg/dL (70-99)
[2018-01-09 21:21] LABS: CREATININE 1.7 mg/dL (0.6-1.3); GFR ESTIMATE (CALCULATED) 41 mL/min/ (58.99-99999)
[2018-01-09 21:22] LABS: UREA NITROGEN (BUN) 12 mg/dL (9-23)
[2018-01-09 21:24] LABS: CHLORIDE 111 mEq/L (99-109)
[2018-01-10 00:43] VITALS: BP 149/67
[2018-01-10 01:32] VITALS: BP 176/77
[2018-01-10 05:57] LABS: CHLORIDE 111 MEQ/L (99-109); CREATININE 1.5 MG/DL (0.6-1.3); GFR ESTIMATE (CALCULATED) 48 mL/min/ (58.99-99999); GLUCOSE 104 mg/dL (70-99); POTASSIUM 3.7 MEQ/L (3.7-5.4); SODIUM 138 MEQ/L (136-147); UREA NITROGEN (BUN) 11 mg/dL (9-23)
[2018-01-10 07:34] VITALS: BP 173/76
[2018-01-10 07:35] LABS: HEMATOCRIT 27.4 % (38.0-50.0); MCH 32.3 PG (29.0-34.0); MCHC 33.2 G/DL (30.0-36.0); MCV 97.2 FL (86-99); PLATELET COUNT 61 K/uL (156-360); RBC DIS.WIDTH-CV 15.5 % (11.8-14.6); RBC DIS.WIDTH-SD 55.2 % (39-53); WHITE BLOOD COUNT 2.6 K/uL (4.1-10.2)
[2018-01-10 07:36] LABS: HEMOGLOBIN 9.1 G/DL (12.5-16.6); RED BLOOD COUNT 2.82 M/uL (4.00-5.50)
== END 2018-01-10 12:23 | disposition home or self-care (01) | DRG 71 ==
LOC: EME 11:50 → EDOF 16:31 → 5EAST 16:31 → ENRESERV 16:51 → 5EAST 17:23
PROVIDERS: Emergency Medicine; Internal Medicine; Physician Assistant
PROC: 30233N1 Transfusion of Nonautologous Red Blood Cells into Peripheral Vein, Percutaneous Approach (ICD-10-PCS; principal; 2018-01-09)
DX: G93.41 Metabolic encephalopathy (principal); E87.1 Hypo-osmolality and hyponatremia; J98.11 Atelectasis; N17.9 Acute kidney failure, unspecified; C92.10 Chronic myeloid leukemia, BCR/ABL-positive, not having achieved remission; D61.818 Other pancytopenia; F33.9 Major depressive disorder, recurrent, unspecified; E86.0 Dehydration; E78.5 Hyperlipidemia, unspecified; E87.5 Hyperkalemia; G30.9 Alzheimer's disease, unspecified; F02.80 Dementia in other diseases classified elsewhere, unspecified severity, without behavioral disturbance, psychotic disturbance, mood disturbance, and anxiety; G89.4 Chronic pain syndrome; J44.9 Chronic obstructive pulmonary disease, unspecified; K21.9 Gastro-esophageal reflux disease without esophagitis; I12.9 Hypertensive chronic kidney disease with stage 1 through stage 4 chronic kidney disease, or unspecified chronic kidney disease; N18.3 Chronic kidney disease, stage 3 (moderate); R32 Unspecified urinary incontinence; F41.9 Anxiety disorder, unspecified; Z87.891 Personal history of nicotine dependence; Z79.51 Long term (current) use of inhaled steroids
CPT/HCPCS: 71045; 80048; 80048 91; 80053; 81003; 82570; 83605; 83930; 83935; 84300; 84443; 84484; 85014; 85018; 85025; 85027; 86850; 86900; 86901; 86920; 87040; 93005; 94799; 97530 GO; 99281; 99285; J0696; J2405; J7030; P9016

== ENCOUNTER 2018-01-23 13:10 | Observation (INO) | payer OTHER ==
[~2018-01-23] VITALS: Ht 170.2 cm; Wt 86.0 kg
[2018-01-23 16:05] LABS: APPEARANCE CLEAR ((CLEAR)); BILIRUBIN NEGATIVE; BLOOD NEGATIVE; COLOR YELLOW ((YELLOW)); GLUCOSE (STRIP) NEGATIVE; KETONES NEGATIVE; LEUKOCYTES NEGATIVE; NITRITE NEGATIVE; PROTEIN (STRIP) NEGATIVE; SPECIFIC GRAVITY 1.011 (1.000-1.030); UCUL ADDED? NO; UROBILINOGEN 0.2 MG/DL (0.2-1.0)
[2018-01-23] MEDS ORDERED: SYMBICORT60 INHALAT IH (16:36)
[2018-01-23] MEDS ORDERED: ZOFRAN4 MG PO (16:36)
[2018-01-23] MEDS ORDERED: LOPID600 MG PO (16:36)
[2018-01-23] MEDS ORDERED: DUONEB 2.5-0.5 M3 ML AEROSOL (16:37)
[2018-01-23 16:42] LABS: BASOPHIL (%) 0.4 % (0-1); EOSINOPHIL (%) 2.1 % (0-5); EOSINOPHIL COUNT 0.1 K/uL (0-0.3); HEMOGLOBIN 11.1 G/DL (12.5-16.6); IMMATURE GRANULOCYTE (%) 0.1 % (0.0-0.7); LYMPHOCYTE (%) 15.8 % (15-42); LYMPHOCYTE COUNT 1.1 K/uL (1.0-2.8); MCH 32.1 PG (29.0-34.0); MCHC 32.6 G/DL (30.0-36.0); MCV 98.3 FL (86-99); MONOCYTE (%) 5.5 % (3-12); MONOCYTE COUNT 0.4 K/uL (0-0.8); NEUTROPHIL (%) 76.1 % (45-76); NEUTROPHIL COUNT 5.1 K/uL (1.8-6.4); PLATELET COUNT 129 K/uL (156-360); RBC DIS.WIDTH-CV 14.7 % (11.8-14.6); RBC DIS.WIDTH-SD 53.4 % (39-53); RED BLOOD COUNT 3.46 M/uL (4.00-5.50); WHITE BLOOD COUNT 6.8 K/uL (4.1-10.2)
[2018-01-23 16:59] LABS: ALBUMIN 3.6 g/dL (3.2-4.8); CHLORIDE 102 mEq/L (99-109); SODIUM 136 mEq/L (136-147)
[2018-01-23 17:01] LABS: GLUCOSE 115 mg/dL (70-99)
[2018-01-23 17:02] LABS: TOTAL PROTEIN 5.8 g/dL (6.4-8.3)
[2018-01-23 17:03] LABS: TOTAL BILIRUBIN 0.7 mg/dL (0.0-1.0)
[2018-01-23 17:05] LABS: ALKALINE PHOSPHATASE 89 IU/L (3-129); CREATININE 2.9 mg/dL (0.6-1.3); GFR ESTIMATE (CALCULATED) 22 mL/min/ (58.99-99999)
[2018-01-23 17:06] LABS: UREA NITROGEN (BUN) 22 mg/dL (9-23)
[2018-01-23 17:07] LABS: AST (GOT) 16 IU/L (2-34); DIRECT BILIRUBIN 0.2 mg/dL (0.0-0.3)
[2018-01-23 17:08] LABS: ALT (GPT) 7 IU/L (3-49)
[2018-01-24 00:06] VITALS: BP 167/69
[2018-01-24 04:26] VITALS: BP 148/66
[2018-01-24 06:42] LABS: HEMATOCRIT 30.1 % (38.0-50.0); HEMOGLOBIN 9.9 G/DL (12.5-16.6); MCHC 32.9 G/DL (30.0-36.0); MCV 97.4 FL (86-99); PLATELET COUNT 93 K/uL (156-360); RBC DIS.WIDTH-CV 14.6 % (11.8-14.6); RBC DIS.WIDTH-SD 52.4 % (39-53); RED BLOOD COUNT 3.09 M/uL (4.00-5.50); WHITE BLOOD COUNT 2.9 K/uL (4.1-10.2)
[2018-01-24 07:01] LABS: CHLORIDE 106 MEQ/L (99-109); GFR ESTIMATE (CALCULATED) 31 mL/min/ (58.99-99999); GLUCOSE 106 mg/dL (70-99); POTASSIUM 4.1 MEQ/L (3.7-5.4); SODIUM 138 MEQ/L (136-147); UREA NITROGEN (BUN) 21 mg/dL (9-23)
[2018-01-24 07:06] LABS: CREATININE 2.2 MG/DL (0.6-1.3)
[2018-01-24 07:37] LABS: THYROTROPIN (TSH) 0.24 MIU/L (0.4-5.5)
[2018-01-24 07:49] LABS: FOLIC ACID (FOLATE) 6.1 NG/ML (5.0-22.0)
[2018-01-24 08:36] VITALS: BP 177/80
[2018-01-24] MEDS ORDERED: VITAMIN B-121000 MC3 PO (10:57)
== END 2018-01-24 12:07 | disposition home or self-care (01) ==
LOC: EME 13:10 → EDOF 22:07 → 5SOUTH 22:07 → ENRESERV 22:16 → 5SOUTH 23:24
PROVIDERS: Emergency Medicine; Hospitalist
DX: N17.9 Acute kidney failure, unspecified (principal); R53.1 Weakness; R26.89 Other abnormalities of gait and mobility; C92.10 Chronic myeloid leukemia, BCR/ABL-positive, not having achieved remission; K21.9 Gastro-esophageal reflux disease without esophagitis; Z92.21 Personal history of antineoplastic chemotherapy; I12.9 Hypertensive chronic kidney disease with stage 1 through stage 4 chronic kidney disease, or unspecified chronic kidney disease; N18.3 Chronic kidney disease, stage 3 (moderate); G30.9 Alzheimer's disease, unspecified; F02.80 Dementia in other diseases classified elsewhere, unspecified severity, without behavioral disturbance, psychotic disturbance, mood disturbance, and anxiety; I25.10 Atherosclerotic heart disease of native coronary artery without angina pectoris; J44.9 Chronic obstructive pulmonary disease, unspecified; E78.5 Hyperlipidemia, unspecified; G89.4 Chronic pain syndrome; G93.5 Compression of brain; D69.6 Thrombocytopenia, unspecified; Z98.1 Arthrodesis status; Z90.49 Acquired absence of other specified parts of digestive tract; Z88.0 Allergy status to penicillin; Z88.1 Allergy status to other antibiotic agents; Z88.8 Allergy status to other drugs, medicaments and biological substances; Z88.5 Allergy status to narcotic agent; Z88.6 Allergy status to analgesic agent; Z91.041 Radiographic dye allergy status
CPT/HCPCS: 70450; 71046; 80048; 80076; 81003; 82306; 82607; 82746; 83605; 84439; 84443; 85025; 85027; 86850; 86900; 86901; 87040; 93005; 94640; 99281; 99285; G0378; J1644; J3486; J7030